=== PATIENT | female | born 1970 | race African-American/Black ===

== ENCOUNTER 2018-03-31 01:32 | Inpatient (IN) | payer OTHER ==
[~2018-03-31] VITALS: Ht 154.9 cm; Wt 87.0 kg
--- NOTE | ~2018-03-31 | EKG ---
[place] [address] [facility] [place] [address] ELECTROCARDIOGRAM REPORT Name: NONI GARAY Room #: 212-P [facility]..#: [id number] Admission: 03/31/18 Attend Phys: Rikki Bojorquez MD Discharge: 03/31/18 Date of : 74 Report #: [id number] THIS REPORT FOR: //name// [facility] ED Test Date: 2018-03-31 Test Time: 01:36:18 Pat Name: NONI GARAY Department: Room: Gender: F Horticultural Manager: JJ : 1970 Requested By: Garrett Cuadra Order Number: [id number] MD: Agustin Cummings Measurements Intervals [place] Rate: 78 P: 58 ME: 161 QRS: 20 QRSD: 91 T: -8 QT: 405 QTc: 462 Interpretive Statements Sinus rhythm Borderline T abnormalities, inferior leads Compared to ECG 04/30/2017 23:29:41 T-wave abnormality now present Electronically Signed On 04-01-2018 14:02:07 CDT by Agustin Cummings [email or web address] <ELECTRONICALLY SIGNED> By: Agustin Cummings MD, [facility] 04/01/18 1402 [id number] 013 Agustin Cummings MD, [facility] /EPI
[~2018-03-31 01:32] MED LIST: AMITRIPTYLINE H25 M2 PO; BENTYL 20 MG TA20 M1 PO; BICARSIM80 MG PO; COLAZAL750 M1 PO; FLEXERIL PO; HUMIRA40 MG/0.1 SQ; HYDROCHLOROTH12.5 M1 PO; NEXIUM40 MG PO; NORCO 5-325 TA1 EACH PO; PERCOCET 10-321 EACH PO; PHENERGAN 25 MG25 M1 PO; PROTONIX40 M1 PO; REMICADE 1100 MG/VIA IV; ULTRAM 50MG TAB50 MG PO
[2018-03-31 01:58] LABS: ABSOLUTE NEUTROPHILS 8.4 thou/uL (1.4-8.2); BASOPHILS 0.7 % (0.0-2.0); EOSINOPHILS 0.7 % (0.0-3.0); HEMATOCRIT 37.9 % (37.0-47.0); HEMOGLOBIN 12.4 gm/dL (12.0-15.0); LYMPHOCYTES 31.7 % (24.0-44.0); MCHC 32.7 g/dL (28.0-37.0); MCV 91.7 fL (80.0-100.0); MONOCYTES 3.6 % (1.0-8.0); PLATELET COUNT 442 thou/uL (150-400); POLYS 63.3 % (36.0-66.0); RBC 4.14 mil/uL (4.20-5.00); RDW 14.4 % (10.5-14.5); WBC 13.2 thou/uL (4.0-11.0)
[2018-03-31 02:08] LABS: ANION GAP 6 mmol/L (7-16); BUN 12 mg/dL (7-18); CHLORIDE 100 mmol/L (98-107); CO2 30 mmol/L (21-32); CREATININE 0.9 mg/dL (0.6-1.0); GLUCOSE 194 mg/dL (74-106); POTASSIUM 3.4 mmol/L (3.5-5.1); SODIUM 136 mmol/L (136-145)
[2018-03-31 02:17] LABS: ALBUMIN 3.8 g/dL (3.4-5.0); MAGNESIUM 1.9 mg/dL (1.8-2.4); SGOT 15 U/L (15-37); SGPT 22 U/L (30-65); TOTAL BILIRUBIN 0.3 mg/dL (<0.1-1.0); TOTAL PROTEIN 8.3 g/dL (6.4-8.2); TROPONIN-I <0.06 ng/mL (<0.06)
[2018-03-31 03:09] VITALS: BP 118/72
[2018-03-31 03:16] VITALS: BP 118/72
[2018-03-31] MEDS ORDERED: ENTYVIO300 MG IV (03:53)
[2018-03-31 07:20] VITALS: BP 119/72
[2018-03-31 07:20] LABS: CHOLESTEROL 246 mg/dL (<200); HDL CHOLESTEROL 78 mg/dL (>40); LDL CHOLESTEROL 155 mg/dL (<100); TC:HDL 3.2 Ratio (Not establshd); TRIGLYCERIDE 66 mg/dL (<150); VLDL 13 mg/dL (<40)
[2018-03-31 10:48] VITALS: BP 119/72
[2018-03-31 17:10] LABS: GLYCOHEMOGLOBIN (HGB A1C) 6.5 % (4.8-5.6)
== END 2018-03-31 11:26 | disposition home or self-care (01) | DRG 313 ==
LOC: ER 01:32 → EROBS 03:01 → 2N 03:18
PROVIDERS: Emergency Medicine; Nurse Practitioner Family
DX: R07.89 Other chest pain (principal); K21.9 Gastro-esophageal reflux disease without esophagitis; D72.829 Elevated white blood cell count, unspecified; K58.9 Irritable bowel syndrome, unspecified; Z79.899 Other long term (current) drug therapy; Z90.49 Acquired absence of other specified parts of digestive tract; Z88.8 Allergy status to other drugs, medicaments and biological substances; Z82.49 Family history of ischemic heart disease and other diseases of the circulatory system; Z88.1 Allergy status to other antibiotic agents
CPT/HCPCS: 10081

== ENCOUNTER 2019-02-10 04:52 | Emergency (ER) | payer OTHER ==
[~2019-02-10] VITALS: Ht 154.9 cm; Wt 81.7 kg
[~2019-02-10 04:52] MED LIST changes: +ENTYVIO300 MG IV
[2019-02-10] MEDS ORDERED: XELJANZ10 MG PO (05:05)
[2019-02-10] MEDS ORDERED: METFORMIN HCL500 MG PO (05:07)
[2019-02-10] MEDS ORDERED: ENTOCORT EC 3 MG3 MG PO (05:07)
[2019-02-10] MEDS ORDERED: REGLAN 10 MG TA10 MG PO (05:09)
[2019-02-10] MEDS ORDERED: LYRICA25 MG PO (05:10)
[2019-02-10 06:18] LABS: URINE BILIRUBIN NEGATIVE (Negative); URINE BLOOD 1+ (Negative); URINE CLARITY CLEAR; URINE COLOR YELLOW; URINE GLUCOSE-RANDOM* NEGATIVE (Negative); URINE KETONES NEGATIVE (Negative); URINE LEUKOCYTES-REFLEX NEGATIVE (Negative); URINE NITRITE-REFLEX NEGATIVE (Negative); URINE PROTEIN (DIPSTICK) NEGATIVE (Negative); URINE UROBILINOGEN 0.2 E.U./dl (0.2-1.0)
[2019-02-10 06:24] LABS: ABSOLUTE NEUTROPHILS 4.6 thou/uL (1.4-8.2); BASOPHILS 0.3 % (0.0-2.0); EOSINOPHILS 0.7 % (0.0-3.0); HEMATOCRIT 35.9 % (37.0-47.0); HEMOGLOBIN 11.7 gm/dL (12.0-15.0); LYMPHOCYTES 46.6 % (24.0-44.0); MCH 31.3 pg (26.0-34.0); MCHC 32.8 g/dL (28.0-37.0); MCV 95.5 fL (80.0-100.0); MONOCYTES 4.6 % (1.0-8.0); PLATELET COUNT 410 thou/uL (150-400); POLYS 47.8 % (36.0-66.0); RBC 3.76 mil/uL (4.20-5.00); RDW 15.2 % (10.5-14.5); WBC 9.7 thou/uL (4.0-11.0)
[2019-02-10 06:30] LABS: BACTERIA-REFLEX None Seen /HPF (None Seen); CASTS None Seen /LPF (None Seen); CRYSTALS None Seen /LPF (None Seen); MUCUS None Seen strn/LPF (None Seen); SQUAMOUS 0-3 Few /LPF (0-3); URINE RBC 0-2 Rare /HPF (0-2); URINE WBC-REFLEX None Seen /HPF (0-5)
[2019-02-10 06:30] LABS: ANION GAP 10 mmol/L (7-16); BUN 7 mg/dL (7-18); CALCIUM 9.2 mg/dL (8.5-10.1); CHLORIDE 101 mmol/L (98-107); CO2 29 mmol/L (21-32); CREATININE 0.9 mg/dL (0.6-1.0); GLUCOSE 99 mg/dL (74-106); POTASSIUM 3.4 mmol/L (3.5-5.1); SODIUM 140 mmol/L (136-145)
[2019-02-10 06:36] LABS: ALBUMIN 3.7 g/dL (3.4-5.0); DIRECT BILIRUBIN < 0.1 mg/dL (<0.1-0.3); LIPASE 107 U/L (73-393); SGOT 30 U/L (15-37); SGPT 33 U/L (30-65); TOTAL BILIRUBIN 0.4 mg/dL (<0.1-1.0); TOTAL PROTEIN 7.6 g/dL (6.4-8.2)
[2019-02-10 10:26] VITALS: BP 138/72
== END 2019-02-10 10:27 | disposition home or self-care (01) ==
LOC: ER 04:52
PROVIDERS: Emergency Medicine
DX: R10.32 Left lower quadrant pain (principal); K21.9 Gastro-esophageal reflux disease without esophagitis; Z90.49 Acquired absence of other specified parts of digestive tract; Z88.1 Allergy status to other antibiotic agents; Z88.8 Allergy status to other drugs, medicaments and biological substances